=== PATIENT | female | born 1985 | race Caucasian/White ===

== ENCOUNTER 2017-04-17 18:30 | Emergency (ER) | payer MEDICAID, OTHER ==
[~2017-04-17] VITALS: Ht 175.3 cm; Wt 95.5 kg
[~2017-04-17 18:30] MED LIST: ACET-784 PO; FERR-72 PO; MACR100 PO; PREN-66 PO
[2017-04-17] MEDS ORDERED: IBUP-1547 PO (19:02)
[2017-04-17] MEDS ORDERED: ANTIBIOTIC PO (19:02)
[2017-04-17 19:52] LABS: APPEARANCE,URINE CLOUDY (CLEAR); GLUCOSE, URINE (UA) NEGATIVE (NEGATIVE); KETONES,URINE NEGATIVE (NEGATIVE); LEUKOCYTE ESTERASE ,URINE SMALL (NEGATIVE); OCCULT BLOOD,URINE SMALL (NEGATIVE); PH,URINE 7.5 (5.0-8.0); PROTEIN,URINE TRACE (NEGATIVE)
[2017-04-17 19:56] LABS: ADD UA MICROSCOPIC YES
[2017-04-17] MEDS ORDERED: KETOROLAC TROMETHAMINE 60 MG/2 ML VIAL IM ONE (20:00)
[2017-04-17 20:03] LABS: SQUAMOUS EPITHELIAL CELL,UR Moderate /LPF (None Seen)
[2017-04-17 20:37] VITALS: BP 129/78
== END 2017-04-17 20:38 | disposition home or self-care (01) ==
LOC: EMS 18:32
DX: N39.0 Urinary tract infection, site not specified (principal)
CPT/HCPCS: 81001; 84703; 87086; 96372; 99284; J1885